=== PATIENT | male | born 1960 | race Caucasian/White ===

== ENCOUNTER 2017-05-07 15:29 | Emergency (ER) | payer BC ==
--- NOTE | 2017-05-07 15:51 | ERNOTE ---
ENT HPI Date of Service: 05/07/17 Presenting Symptoms: other - Bilateral eye redness and irritation Time Seen by Provider: 05/07/17 15:37 Source: patient Exam Limitations: no limitations - Immun/Allergies/Home Medications Immunizations: IMMUNIZATION HX Immunizations Up to Date Yes History of Influenza Vaccine No Hx Pneumococcal Vaccination No Allergies/Adverse Reactions: Allergies Allergy/AdvReac Type Severity Reaction Status Date / Time acetaminophen [From Percocet] Allergy Verified 05/07/17 15:44 oxycodone HCl [From Percocet] Allergy Verified 05/07/17 15:44 Home Medications: HOME MEDICATIONS Ofloxacin 1 drp OP 10XD #1 bottle 05/07/17 [Last Taken Unknown] - History of Present Illness Narrative: Patient states that approx beginning Tuesday his eyes started turning red. The next morning he had to take a warm washcloth to dissolve the matting over his eyes before he could open them. Denies any vision changes or significant pain but rather irritation. Date (Duration): 05/04/17 Severity: Present: moderate ENT Location: Present: eye (R), eye (L) Prearrival Treatment: Present: other - visine Modifying Factors - Improves: Reports: nothing Modifying Factors - Worsens: Reports: nothing Associated Symptoms - ENT: Reports: denies symptoms Review of Systems - Narrative Narrative: As mentioned symptoms started 3 days ago and are worsening with more mattering of the eyes. Denies pain but rather more of a discomfort. Denies any trauma or foreign objects in the eyes. Was cutting some wood 7 days ago but did not notice the symptoms until 3. - Review of Systems Constitutional: Present: no symptoms reported EYE: Present: eye discharge, other - Bilateral eye drainage and mattering. Uses warm wash cloths to dissolve the mattering each time he wakes up. Denies any floaters but at times will notice a film over the eyes from the mattering. ENT: Present: no symptoms reported Respiratory: Present: no symptoms reported Skin: Present: no symptoms reported - Patient's Past Medical History Patient History - Medical: No pertinent hx Patient History - Cardiac/Respiratory: Hypertension Patient History - Cancer: No Hx of Cancer Patient History - Surgical Procedures: Orthopedic Patient History - Other: None - Social History Living Situations: home Psych History: No pertinent hx Smoking Status: Never smoker Have you smoked in the past 12 months: No Do you dip or chew tobacco: No - Immunizations Immunizations Up to Date: Yes Hx Pneumococcal Vaccination: No History of Influenza Vaccine: No Physical Exam - Physical Exam General Appearance: Present: wd/wn, alert, mild distress Eye Exam: PERRL: bilateral, EOMI: bilateral, Sclera injection: bilateral, Eye drainage: bilateral - Bilateral purulent drainage with crusting of the eyelashes. , Eyelid inflammation: bilateral - Bilateral erythema and inflammation Ears, Nose, Throat: Present: normal ENT inspection Skin Exam: Present: normal color, warm/dry ED Progress - Vital Signs Patient's Vital Signs:: I have reviewed the patient's vital signs. Vital Signs: Vital Signs 05/07/17 15:36 Temperature 36.2 C L Pulse Rate 73 Blood Pressure 196/108 O2 Sat by Pulse 97 Oximetry - Progress/Reassessment Progress:: Unchanged Progress Note-Subjective: 05/07/17 15:56 No acute intervention. Departure Clinical Impression: Reardan eye disease of both eyes - Departure Disposition: Home Follow Up Needed Condition: Good Additional Instructions: Suggest follow up with family provider on Tuesday/tuesday for recheck of eyes. Any worsening of symptoms including irritation, increased drainage, vision changes return to ER. However may take up to 72 hrs to see significant improvement but you should not worsen. Use 1 drop in each eye every 2 hrs for two days and then 1 drop every 4 hrs x 5 days when awake for a total of 7 days. Also use generic zyrtec (ceterizine 10mg daily) for allergy type symptoms. Prescriptions: Ofloxacin 1 drp OP 10XD #1 bottle
[2017-05-07 16:16] VITALS: BP 146/97
== END 2017-05-07 16:15 | disposition home or self-care (01) ==
LOC: ER 15:29
DX: H10.33 Unspecified acute conjunctivitis, bilateral (principal)